=== PATIENT | male | born 1975 | race Caucasian/White ===

== ENCOUNTER 2018-03-17 23:50 | Inpatient (IN) | payer OTHER ==
[~2018-03-17] VITALS: Ht 182.9 cm; Wt 109.8 kg
[2018-03-18] VITALS (10 sets, daily range): BP systolic 110–158; BP diastolic 60–84
[2018-03-18 00:20] LABS: ABSOLUTE BASOPHIL COUNT 0 /CUMM (0.0-0.2); ABSOLUTE EOSINOPHIL COUNT 0.2 /CUMM (0.0-0.7); ABSOLUTE GRANULOCYTE CT 4.4 /CUMM (1.4-6.5); ABSOLUTE LYMPH COUNT 2.9 /CUMM (1.2-3.4); ABSOLUTE MONOCYTE COUNT 0.7 /CUMM (0.10-0.60); BASOPHIL % 0.4 % (0.0-2.0); GRANULOCYTE % 53.4 % (42.2-75.2); HEMATOCRIT 37.7 % (42-52); MEAN CORPUSCULAR HGB 28.5 PG (27.0-31.0); MEAN CORPUSCULAR HGB CONC 33.7 G/DL (33.0-37.0); MEAN CORPUSCULAR VOLUME 84.6 FL (80.0-94.0); MEAN PLATELET VOLUME 7.3 FL (7.4-10.4); PLATELET COUNT 255 /CUMM (130-400); RBC DISTRIBUTION WIDTH 13.1 % (11.5-14.5); RED BLOOD CELL CT 4.46 /CUMM (4.70-6.10); WHITE BLOOD CELL COUNT 8.1 /CUMM (4.8-10.8)
--- NOTE | 2018-03-18 00:29 | ED AMS/SEIZURE/WEAK/DIZZY ---
History of Present Illness General Chief Complaint: General Adult Stated Complaint: BIBA UNRESPONSIVE Source: EMS Exam Limitations: unable to give history, clinical condition Vital Signs & Intake/Output Vital Signs & Intake/Output Vital Signs Date Time Temp Pulse Resp B/P B/P Pulse O2 O2 Flow FiO2 Mean Ox Delivery Rate 03/18 0347 91 24 151/100 99 Ventilator 100% 03/18 0333 100 03/18 0333 120 24 197/107 97 Ventilator 100% 03/18 0234 96.0 67 24 97/59 93 Ventilator 100% 03/18 0150 95.5 81 24 108/68 92 Ventilator 100% 03/18 0138 100 03/18 0025 116 20 211/117 94 Ventilator 100% 03/18 0010 100 03/17 2358 112 40 200/100 84 Room Air Room Air 03/17 2350 84 100% ED Intake and Output 03/18 0000 03/17 1200 Intake Total Output Total Balance Patient 243 lb Weight Allergies Coded Allergies: No Known Allergies (03/18/18) Reconcile Medications Cyclobenzaprine HCl (Unknown Strength) TABLET (Unknown Dose) PAIN CONTROL ( Reported) Gabapentin (Unknown Strength) CAPSULE (Unknown Dose) PO TID PAIN CONTROL ( Reported) Sildenafil Citrate (Viagra) (Unknown Strength) TABLET (Unknown Dose) PO AD ERECTILE DYSFUNCTION (Reported) 1 hour before sexual activity Triage Note: 42YO MALE TO RM 12 VIA AMB SP FOUND DOWN W/AGONAL BREATHING PRESENT UPON ARRIVAL-NASAL AIRWAY PRESENT, NOISY, GROWLING RESPS. IV INTACT L H. Triage Nurses Notes Reviewed? yes Onset: Just prior to arrival Duration: minute(s):, constant, continues in ED Timing: recent history Injury Environment: home Severity: severe No Modifying Factors: none Associated Symptoms: diaphoresis HPI: 1 day prior to admission patient was at the [facility] for hypertension. His spouse reports he was wearing multiple nicotine patches and working outside. He took Viagra several hours prior to admission to have sex but his spouse was not in the mood. He went to the kitchen to make popcorn. Prior to admission patient was found by significant other unresponsive on the kitchen floor without evidence of injury. EMS called administered Narcan with minimal arousal of the patient. Upon entry to the ED the patient was being Ambu bag with flailing of extremities. 2 mg of Narcan was administered without response. He was found to have snoring respiration left gaze preference diaphoresis with jerking movements of upper and lower extremities. Past History Travel History Traveled to [place] past 21 day No Medical History Any Pertinent Medical History? see below for history Surgical History Surgical History: non-contributory Family History Hx Contributory? No Review of Systems Review of Systems Constitutional: Reports: see HPI, diaphoresis, weakness. EENTM: Reports: no symptoms. Respiratory: Reports: no symptoms. Cardiovascular: Reports: no symptoms. GI: Reports: no symptoms. Genitourinary: Reports: no symptoms. Musculoskeletal: Reports: no symptoms. Skin: Reports: no symptoms. Neurological/Psychological: Reports: see HPI, cognitive dysfunction, tremors, weakness. Hematologic/Endocrine: Reports: no symptoms. Immunologic/Allergic: Reports: no symptoms. All Other Systems: Reviewed and Negative Physical Exam Physical Exam General Appearance: well developed/nourished, severe distress, intoxicated Head: atraumatic, normal appearance Eyes: Bilateral: other (L gaze preference, dilated). Ears, Nose, Throat: normal pharynx, normal ENT inspection Neck: normal inspection, supple, full range of motion Respiratory: rhonchi, respiratory distress Cardiovascular: regular rate/rhythm, normal peripheral pulses, tachycardia, norml femoral pulses equa Peripheral Pulses: 4+ carotid (R), 4+ carotid (L) Gastrointestinal: normal bowel sounds, soft, non-tender, no organomegaly Back: normal inspection, normal range of motion Extremities: normal range of motion, no ligament instability Neurologic/Psych: disoriented x 3 Reflexes: 2+: bicep (R), bicep (L). Skin: diaphoresis Lymphatic: no anterior cervical trinity Core Measures ACS in differential dx? No CVA/TIA Diagnosis No Sepsis Present: No Sepsis Focused Exam Completed? No Progress Differential Diagnosis: alcohol intoxication, CVA/stroke, drug intoxication, electrolyte imbalance, hypoglycemia, intracranial mass/tumor, pneumonia Plan of Care: Orders Procedure Date/time Status Nothing by Mouth 03/18 B Active Patient Data 03/18 1644 Active TROPONIN LEVEL 03/18 1200 Active EKG 03/18 1200 Active TROPONIN LEVEL 03/18 0600 Active EKG 03/18 0600 Active ARTERIAL BLOOD GAS (GEN) 03/18 0500 Active XRY-PORTABLE CHEST XRAY 03/18 0500 Active Drains/Tubes 03/18 0435 Active ARTERIAL BLOOD GAS (GEN) 03/18 0356 Active Pathway - chart 03/18 0352 Active House Staff 03/18 035 Active BLOOD CULTURE 03/18 035 Active Code Status 03/18 035 Active Wound Care/Dressing 03/18 252 Active Weight 03/18 025 Active VTE Mechanical Prophylaxis 03/18 252 Active Vital Signs 03/18 252 Active Turn and Reposition 03/18 252 Active Drains/Tubes 03/18 252 Active Teach/Educate 03/18 252 Active Skin Integrity Protocol 03/18 252 Active Skin/Pressure Ulcer Assess (Sk 03/18 252 Active Precautions 03/18 252 Active Pain Treatment and Response 03/18 252 Active Nutritional Intake, Monitor 03/18 252 Active Isolation 03/18 252 Active CIWA 03/18 252 Active Patient Care Conference 03/18 252 Active Activity/Ambulation 03/18 252 Active Admit to inpatient 03/18 0232 Active Add-on Test (ER Only) 03/18 0231 Active ARTERIAL BLOOD GAS (GEN) 03/18 0155 Complete VENTILATOR PARAMETERS 03/18 0138 Complete Drains/Tubes 03/18 0038 Complete Intake & Output 03/18 0031 Active VENTILATOR PARAMETERS 03/18 0027 Complete Ahn, Insertion/Removal/Asses 03/18 0015 Active Restraint- Medical 03/18 0011 Active URINE DRUG SCREEN FOR ER ONLY 03/18 0011 Active ACETOMINOPHEN 03/18 0011 Complete TROPONIN LEVEL 03/18 0011 Complete SALICYLATE 03/18 0011 Complete ETHANOL 03/18 0011 Complete COMPREHENSIVE METABOLIC PANEL 03/18 0011 Complete CBC WITHOUT DIFFERENTIAL 03/18 0011 Complete EKG 03/18 0011 Active B-TYPE NATRIURETIC PEP (BNP) 03/18 001 Complete Lab Add-on Test 03/18 UNK Active Elevate 03/18 UNK Active Current Medications Sig/Alexis Start time Last Medication Dose Stop Time Status Admin Enoxaparin Sodium 40 MG DAILY 03/18 09 AC (Lovenox) Pantoprazole Sodium 40 MG DAILY 03/18 09 AC (Protonix) Ampicillin Sodium/ 3,000 MG Q6 03/18 0400 AC 03/18 Sulbactam Sodium 0405 (Unasyn) Sodium Chloride 100 ML (Normal Saline 0.9%) Laboratory Tests 03/18/18 0145: pH 7.33 L, pCO2 44, pO2 61 L, HCO3 23, ABG O2 Sat (Measured) 90.0 L, P-50 ( Temp Corrected) N, Carboxyhemoglobin 0.5 L, O2 Concentration % 100, Respiration Rate 24, O2 Delivery Method VENT, Vent Mode A/C, Expiratory Pressure 10, Tidal Volume 700, Phlebotomy Draw Site RIGHT RADIAL 03/18/18 0023: Urine Opiates Screen > 4000.00 H, Buprenorphine & Metab Pending, Methadone Screen 48, Barbiturate Screen < 60, Ur Phencyclidine Scrn < 6.00, Amphetamines Screen 522, U Benzodiazepines Scrn 368 H, Urine Cocaine Screen < 50, Urine Cannabis Screen < 5.00 03/18/18 0010: Anion Gap 19 H, Estimated GFR > 60, BUN/Creatinine Ratio 15.8, Glucose 137 H, Calcium 8.7, Total Bilirubin 0.3, AST 37, ALT 30, Alkaline Phosphatase 69, Troponin I < 0.01, Uml-X-Yuezifnrrxk Pept 12.4, Total Protein 7.3, Albumin 4.2, Globulin 3.1, Albumin/Globulin Ratio 1.4, CBC w Diff NO MAN DIFF REQ, RBC 4.46 L, MCV 84.6, MCH 28.5, MCHC 33.7, RDW 13.1, MPV 7.3 L, Gran % 53.4, Lymphocytes % 35.1, Monocytes % 8.1, Eosinophils % 3.0, Basophils % 0.4, Absolute Granulocytes 4.4, Absolute Lymphocytes 2.9, Absolute Monocytes 0.7 H, Absolute Eosinophils 0.2, Absolute Basophils 0, Salicylates < 1.0, Acetaminophen < 10.0 L, Serum Alcohol < 10.0 Microbiology 03/185 BLOOD: Blood Culture - RECD 03/18 350 BLOOD: Blood Culture - RECD Diagnostic Imaging: Viewed by Me: CT Scan. Discussed w/RAD: CT Scan. Radiology Impression: 1. Endotracheal tube terminates 4 cm above the nhi. 2. Bilateral dependent consolidation is nonspecific. While this could represent atelectasis, aspiration is also possible. 3. No acute fractures are seen. No acute findings of the abdomen or pelvis., 1. No acute intracranial findings. 2. No vascular abnormality. No large vessel occlusion. Initial ED EKG: normal axis, normal intervals, normal p-waves, normal QRS complex, normal sinus rhythm, rhythm (sinus tachycardia), nonspecific ST T wave chg Rhythm Strip: sinus tachycardia Departure Departure Disposition: STILL A PATIENT Condition: Critical Clinical Impression Primary Impression: Respiratory failure requiring intubation Secondary Impressions: Aspiration pneumonia, Opiate overdose Departure Forms: Customer Survey General Discharge Information Admission Note Spoke With: Carlos Ma MD Documentation of Exam: Documentation of any treatments & extenuating circumstances including Concerns Regarding Discharge (functional status, medication knowledge or non-compliance, living conditions, etc.) that warrant an admission rather than observation: ICU monitoring mechanical ventilation serial lab exam serial neurologic check IV fluids psychiatry evaluation medication adjustment continuing care discharge planning Procedures Intubation Intubation Method: orotracheal Tube Size (cm): 8.0 Medications: succinylcholine, etomidate Breath Sounds After Intubation: equal Intubation Complications: no complications Post Intubation Xray? Yes Progress: Repeat intubation difficult. Intubated on 3rd attempt 7Fr. 23 cm @ lips. Critical Care Note Critical Care Note Critical Care Time: 30-74 min (65)
--- NOTE | 2018-03-18 01:22 | CT SCAN REPORT ---
EXAMINATION: CT HEAD WITHOUT CONTRAST CLINICAL INFORMATION: Unresponsive. Dilated pupils. Overdose. COMPARISON: 05/10/2016 TECHNIQUE: Contiguous axial imaging was performed from the skull base to vertex without intravenous contrast. DLP: 618 mGy-cm. FINDINGS: There is no evidence of acute intracranial hemorrhage or territorial infarction. No abnormal mass effect or midline shift is seen. Betancur to white matter differentiation is well preserved. No extra-axial fluid collections are identified. No hydrocephalus. No significant volume loss. There is no abnormal attenuation within the brain parenchyma. The osseous structures and soft tissues are normal. The mastoid air cells and visualized portions of the paranasal sinuses are well aerated. IMPRESSION: No acute intracranial pathology.
--- NOTE | 2018-03-18 02:06 | CT SCAN REPORT ---
EXAMINATION: CT LIMITED OR FOLLOWUP CLINICAL INFORMATION: Trauma. COMPARISON: None TECHNIQUE/FINDINGS: During the cook apprentice imaging, the patient was extubated. The examination was then terminated. No diagnostic information obtained from the lateral cook apprentice image. DLP: 0 mGy-cm IMPRESSION: The examination was not performed due to patient extubation.
--- NOTE | 2018-03-18 03:29 | History & Physical ---
Diane Sharp MD 03/18/18 0329: General Information and HPI MD Statement: I have seen and personally examined JOCELINE DRAPER and documented this H&P. The patient is a 42 year old M who presented with a patient stated chief complaint of [BIBA FOR UNRESPONSSIVENSS]. 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 The history was provided by the patient's fianc. The pt was in his usual state of health this morning, he went to his school for [employer], came home at 12:30, He fixed his relative car. Around 2:30 pt fiancee came back home , she thought that the pt didn't look fine and was not acting himself. She accepted the patient if he used any drugs, at first he denied and then he said that he took 2 pills of the muscle relaxant prescribed by his doctor for back pain at 10:30. Patient feels he reported that he was walking funny, looked drowsy and was spacing out. Patient had an appointment at 5 PM with his doctor at [facility] for Suboxone. He called his fiance stating that his blood pressure was 200/97, his blood pressure was rechecked with a different cuff which was 127/97. Patient to go himself to and from the doctor office. After which patient went to dinner with his fiance and was still looking drowsy. They had an argument about if he is abusing any drugs. They went home, patient took 1 tablet of Viagra 100 mg. Patient went to the kitchen to get a snack, his fiance tried calling him however he did not answer. She went to check on him within 10 minutes when she found him on the kitchen floor in position snoring. At first she thought that he passed out she tried to wake him up but he was unresponsive. She called 911 who advised her to place him on his side for possible aspiration. The patient was too heavy for his fiance to lay him on his side and he remained in the same position. Patient feels he denied that he was complaining of any depression or suicidal ideation. Of note during his last visit to his doctor he mentioned that he feels good in general and he rewards himself from time to time; which she thinks is by taking drugs. Patient feels improved his meds. Many of the medications different tablets makes it in the same bottle. Some mass names are crossed out and his other names on the bottle. Vital signs on admission: Blood pressure 202/100, pulse 112, respiratory rate 40 , pulse ox 84 on room air Labs on admission: WBC was within normal limits with hemoglobin 12.7, WBC 8.1, platelet 255, BEP showed sodium 145, potassium 4.2, anion gap 19, glucose 137, troponin less than 0.01, U tox was positive for opiates and benzodiazepine ABG showed pH 7.33, PCO2 44, PO2 61, bicarb 23, Chest CT: 1. Endotracheal tube terminates 4 cm above the nhi. 2. Bilateral dependent consolidation is nonspecific. While this could represent atelectasis, aspiration is also possible. 3. No acute fractures are seen. No acute findings of the abdomen or pelvis. Head CT, CTA, neck CTA were negative Allergies/Medications Home Med list Cyclobenzaprine HCl (Unknown Strength) TABLET (Unknown Dose) PAIN CONTROL ( Reported) Gabapentin (Unknown Strength) CAPSULE (Unknown Dose) PO TID PAIN CONTROL ( Reported) Sildenafil Citrate (Viagra) (Unknown Strength) TABLET (Unknown Dose) PO AD ERECTILE DYSFUNCTION (Reported) 1 hour before sexual activity Past History Travel History Traveled to [place] past 21 day No Medical History Musculoskeletal: back pain Psychiatric: substance abuse (heroin abuse 3 years ago) Other Medical Hx: HCV, recieved treatment 1 year ago Surgical History Surgical History: non-contributory Past Family/Social History Family History Relations & Conditions if any MOTHER Relation not specified for: FHx: hypertension Psychosocial History Smoking Status: Former Smoker ETOH Use: occasional use Illicit Drug Use: denies illicit drug use, former Heroine abuse Review of Systems Review of Systems Constitutional: Reports: see HPI. Exam & Diagnostic Data Last 24 Hrs of Vital Signs/I&O Vital Signs Date Time Temp Pulse Resp B/P B/P Pulse O2 O2 Flow FiO2 Mean Ox Delivery Rate 03/18 0512 80 03/18 0444 80 03/18 0347 91 24 151/100 99 Ventilator 100% 03/18 0333 100 03/18 0333 120 24 197/107 97 Ventilator 100% 03/18 0234 96.0 67 24 97/59 93 Ventilator 100% 03/18 0150 95.5 81 24 108/68 92 Ventilator 100% 03/18 0138 100 03/18 0025 116 20 211/117 94 Ventilator 100% 03/18 0010 100 03/17 2358 112 40 200/100 84 Room Air Room Air 03/17 2350 84 100% Intake & Output 03/18 0800 03/18 0000 03/17 1600 Intake Total 1000 Output Total Balance 1000 Intake, IV 1000 Patient 243 lb Weight Physical Exam General Appearance unresponsive and intubated HEENT Atraumatic, PERRLA, EOMI, Mucous Membr. 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 U tox was positive for opiates and benzodiazepine however the patient is currently on Suboxone which he can give positive opiates. Patient blood pressure in the ER was 200/100, tachycardia, tachypnea with increasing secretion. When the patient was transported to CT scan the endotracheal tube got dislodged and the patient was extubated and was brought back in the ER room reintubated with the help of a glide scope. Large amount of secretion was suctioned and it was difficult to bag and required higher PEEP. Which was increased from 5-10. EKG showed ST depression in V2V5, tropes was negative. Differential diagnosis includes drug overdose, VA, Problem list: Possible drug overdose EKG changes in the form of ST depression Aspiration pneumonia Acute hypoxic respiratory failure is S/P intubation History of heroin abuse currently on Suboxone Hepatitis C, status post treatment Plan: Admit to ICU Critical care consult in the morning HOB elevation IV Unasyn 3 g every 6 IV for possible aspiration pneumonia Chest x-ray and ABG in the morning Check U tox for Suboxone Oral care with chlorhexidine IV Protonix 40 mg daily Serial troponin EKG Sent meds for identification by the pharmacy [facility] Prognosis is guarded, patient can see is aware about the possibilities. She tried to call patient mother but was not able to reach her. Patient is full code N.p.o. As Ranked By This Provider Problem List: 1. Aspiration pneumonia 2. Opiate overdose 3. Respiratory failure requiring intubation Core Measures/Misc (07/26) Acute Coronary Syndrome ACS Diagnosis: No Congestive Heart Failure Congestive Heart Failure Diagnosis No Cerebrovascular Accident CVA/TIA Diagnosis: No VTE (View Protocol) VTE Risk Factors Age>40 No Mechanical VTE Prophylaxis d/t N/A MechProphylax Ordered No VTE Pharm Prophylaxis d/t NA PharmProphylax ordered Sepsis (View protocol) Sepsis Present: No Emmett Sorto MD 03/18/18 0415: General Information and HPI Allergies/Medications Allergies: Coded Allergies: No Known Allergies (03/18/18) Resident Review Statement Resident Statement: examined this patient, discussed with internet sales manager, agreed with internet sales manager, discussed with family, reviewed EMR data (avail), discussed with nursing , reviewed images, amended to note Other Findings: 42-year-old male with past medical history of opiate (Heroin) abuse now on Suboxone since 2.5 yrs, who follows [facility] for PCP, Suboxone, group-therapy, was BIBA for unresponsiveness at home. According to his Meme ([phone]), he was in his usual state of health until this morning, and was reported to have helped her sister in household job today without any difficulty. Later around 2:30-3 pm, she found his mentation altered- drowsy, "staring", "out of it", initially denied any drug intacke and later mentioned he took two muscle relaxers. He went on to go out for dinner with her, took one viagra (home med) but did not have sex, and at bed-time, he asked if she "would like any popcorn?". About ten minutes after that and not responding to calls, she found him in the kitchen floor, curled up in position and breathing heavy/snoring, and unresponsive. 911 called and he was given narcan on site without much improvement. Of note, his brought a bag of his medications, which has mixed pills even inside a single container. Needs identifications. In the ED, he received narcan 2mg IV, breathing status was still worse, and was intubated, received 2 L NS total, Lorazepam IV, and one dose of Unasyn 3 gm. Vital signs, PE, lab values as noted above. Vital signs, physical exam, labs and imaging as noted above. Pertinent: Intubated obese gentleman with NGT, ETT, Ahn in place, with internet consultant connected. B/l coarse breath sound, distended abd with hyperactive bowel sounds, constricted pupils equally b/l but not pin-point, reacting sluggisly to light ( this is after his intubation and muscle relaxants dose). EKG-sinus rhythm, normal intervals, no ischemic changes Patient is currently admitted in the ICU for the management of following issues: RESPIRATORY #Acute hypoxic respiratory failure, requiring mechanical intubation and ventilation #Aspiration pneumonia likely Given patient's condition, patient's respiratory failure possibly is due to medication effect, depressing respiratory drive. he might have aspirated while lying in dependent position as well as evident in the CT scan. -Continue mechanical ventilation -Settings discussed with Dr Garza, who suggested decreasing rate, TV, PEEP. -Discussed with respiratory therapist who had reduced FiO2 to 85% already, and will cahnge settings one at a time with ABG in between. -Raise HOB, aspiration precautions -IV Unasyn 3 gm q6h -LRC when possible ID #Aspiration pneumonia likely -See in respiratory (Unasyn...) -Follow Blood, Urine, resp cultures CARDIO Pt received 2 L IV fluids already. Would hold off on further IV fluids for now. -Reassess in AM -Consider antihypersives if BP trending high -Trop and EKG at 6 am and 12 noon -Cardiology consult HEME Stable -Repeat CBC METABOLIC His current metabolic profile is within normal limits. Although he probably has toxic metabolic encephalopathy. -Continue to monitor ICU lab bundle closely -Follow up on U tox with Subxone level -Consider sending out other toxic metabolites as well if further labs are abnormal ALIMENTARY -NPO due to intubation -NGT in situ -IV PPI NEURO #Toxic Metabolic encephalopathy Nut entirely sure of the cause or mechanism of his mental state. Most likely is medication error (overdose, wrong med, among others) as he seems to have a mix of drugs in bag brought in by his . -Seizure, aspiration precaution -Consider neurology consult, if any focality observed NEPHRO Currently stable. -Continue to monitor HOUSEKEEPING: Diet: NPO DVT ppx: SQ Lovenox Code status: Full code IV Access: Peripheral Ahn? Yes NGT? Yes ETT? Yes Carlos Ma 03/18/18 0522: Attending MD Review Statement Attending Statement Attending MD Statement: examined this patient, discuss w/resident/PA/RIG HAND, agreed w/resident/PA/RIG HAND, discussed with family, reviewed EMR data (avail), reviewed images, amended to note Attending Assessment/Plan: CC: agonal breathing PMH: History of heroine addiction 3 years back, currently on Suboxone, history of hep C S/P treatment History is obtain from patient's fianc. She stated that patient did not "look himself" this afternoon. "Seemed a little off". She inquired if he had taken any medication. Patient stated that he took to muscle relaxants, they went out for dinner in the evening, at that time patient had blank look intermittently and after coming back patient was getting something from kitchen. He was taking longer time than usual so ficarmen went to check on him within 10 mins and he was gasping for air in a position in kitchen. She made him lay flat and called EMS. She states that patient took Viagra before that episode. Even before that he was appearing a little more dazed and eye "blank look" but she did not notice any neurological changes, facial drooping or weakness. She did not notice any seizure-like activity when he was found in kitchen. Patient went to Suboxone clinic this morning, his blood pressure was 200/80, was rechecked again with different cough and was 120/80. Other than this no particular observations for the day according to stefan. Stefan also got all his medications boxes from home with her. Vitals: Temperature 96.0, pulse 67, RR 24, blood pressure 200/100, dropped to 97 /59, saturating 84% on high flow nasal cannula, 92% after intubation on ventilator 100% FiO2 On examination: Pupils are not pinpoint, sluggishly reactive, patient intubated, coarse breathing sounds in all lung rapp, does not move to deep pain sensation , abdomen soft, no obvious skin rashes or tracks. CT head: No acute intracranial pathology Assessment and plan 42-year-old male with past medical history significant for IVDU, clear since 3 years, currently on Suboxone was brought in ER through ambulance after patient's fiance found him gasping for air, obtunded in kitchen. He looked a little dazed earlier during the day, when she asked he endorsed taking couple of more muscle relaxant pills. He also took Viagra just before the episode but it's not new for him to take that medication. Patient's blood pressure in ER was 200/100, tachycardic, tachypneic, not holding his secretions, immediately intubated upon arrival. He was under investigation with the labs and imaging when he was transported to CT scan, the endotracheal tube dislodged and patient got extubated. He was brought back in ER room and reintubated with the help of a glidescope. Copious amount of frothy secretions were suctioned from the ET tube. Patient was difficult to bag, and required higher PEEP months up to ventilation to saturate about 92%. PEEP increased from 5 to 10, to increase in O2 sats from 87% to 92%, on 100% FiO2 tidal volume of 700 and respiratory rate of 24. Once the sedation for intubation was decreasing patient was spontaneously moving his hand intermittently. Labs otherwise unremarkable except U tox positive opiates in high quantities, small dose of benzodiazepine for but ECG shows ST depression in V2 to V5, troponin negative. Patient's altered mental status could be secondary to drug overdose. When his pill boxes from home were checked, it had many pills mixed up in different boxes: baclofen, gabapentin, Flexeril, Seroquel , Wellbutrin. Overdose of any of this medication could cause his altered mental status (pupils sluggishly reactive, not pinpoint). Patient already on Suboxone can give opiate positive in urine, may have taken street heroin or other opiate. Less likely secondary to Viagra as blood pressure was sustained and ST depression appear secondary to demand. Transient drop in blood pressure while in ER was after intubation and positive pressure ventilation started. CT head, CT abdomen and pelvis, CT chest, CTA head and neck was obtained which did not show any acute changes except possibility of aspiration pneumonia. + Toxic encephalopathy + Acute respiratory failure status post intubation requiring maximum support + Suspected overdose + ST depression on ECG + Aspiration pneumonia + History of IVDU currently on Suboxone, hep C S/P treatment - Admit to ICU - Please call charge master specialist for vent setting - If patient is getting more alert or agitated then start propofol for sedation - Check specific U tox for Suboxone level - Head and elevation - Oral care - IV Protonix 40 mg daily - Serial troponin and ECG - Repeat ABG in 2 hours of previous to adjust vent settings - Continue IV Unasyn - Chest x-ray in a.m. - Cardiology consult - I had detailed discussion with patient's fianc about possibilities and causes of current condition, explained her that he is critically sick, she understands the seriousness. Patient is full code. TTS 45 min
--- NOTE | 2018-03-18 03:46 | CT SCAN REPORT ---
EXAMINATION: CT CHEST WITHOUT CONTRAST CT ABDOMEN AND PELVIS WITHOUT CONTRAST CLINICAL INFORMATION: Fall. Overdose. COMPARISON: None. TECHNIQUE: Multidetector volumetric imaging was performed through the chest, abdomen and pelvis without contrast. Sagittal and coronal reformatted images were obtained on the technologist's workstation. Axial MIP volume rendering provided. DLP: 1640 mGy-cm. FINDINGS: CHEST: Lungs: An endotracheal tube is in place, which terminates approximately 4 cm above the nhi. The central airways are patent. There is dense bilateral lower lobe consolidation with air bronchograms. Additional streaky opacity at the dependent aspect of the upper lobes. No significant pleural effusion. No pneumothorax. Mediastinum: The heart is normal in size. No pericardial effusion. No mediastinal lymphadenopathy. The thyroid gland is unremarkable. Chest Wall/Axilla: No lymphadenopathy. No chest wall mass. ABDOMEN/PELVIS: Liver, Gallbladder, Biliary Tree: The liver is normal in size, shape, and attenuation. No focal hepatic lesion or biliary ductal dilatation is present. The gallbladder is unremarkable with no evidence of radiopaque gallstones, gallbladder wall thickening, or pericholecystic inflammatory changes. Pancreas: Unremarkable. Spleen: Unremarkable. Adrenal Glands: Unremarkable. Kidneys and Ureters: The kidneys are normal in size, shape, and attenuation. No hydronephrosis, hydroureter or calculi seen. No perinephric stranding. Bladder: Decompressed with a Ahn catheter in place. Gastrointestinal Tract: Enteric tube extends into the stomach. The small bowel is normal in caliber. There is no obstruction. No colonic wall thickening or inflammatory change. No free air or free fluid. The appendix is unremarkable. Abdominal Wall: No hernia is demonstrated. Lymphovascular Structures: Lymph nodes: Normal. Vascular: Unremarkable. Pelvic Viscera: The prostate and seminal vesicles are unremarkable. OSSEOUS STRUCTURES: No suspicious sclerotic or lytic bone lesions are identified. No acute osseous abnormalities. Vertebral body height and alignment is maintained. The sternum is intact. The ribs are intact. The pelvis is intact. IMPRESSION: 1. Endotracheal tube terminates 4 cm above the nhi. 2. Bilateral dependent consolidation is nonspecific. While this could represent atelectasis, aspiration is also possible. 3. No acute fractures are seen. No acute findings of the abdomen or pelvis.
--- NOTE | 2018-03-18 03:50 | CT SCAN REPORT ---
EXAMINATION: CTA OF THE HEAD/NECK CLINICAL INFORMATION: Overdose. Seizure. COMPARISON: Head CT from today TECHNIQUE: A routine non contrast head CT was performed earlier in the day. A 95 mL bolus of Optiray 320 was utilized. Subsequent multidetector helical imaging was performed of the head and neck. Delayed post contrast imaging was also performed through the head. Multiplanar reformats and MIP were also obtained. Internal carotid artery stenoses are assessed in accordance with NASCET criteria unless otherwise indicated. DLP: 1195 mGy-cm. FINDINGS: CT HEAD: No evidence of acute intracranial hemorrhage or territorial infarction. No abnormal mass effect or midline shift. Betancur to white matter differentiation is preserved. No extra-axial fluid collections are identified. No hydrocephalus. No suspicious leptomeningeal or parenchymal enhancement on the post-contrast images. The osseous structures and soft tissues are normal. The mastoid air cells and visualized portions of the paranasal sinuses are well aerated. CTA NECK: The aortic arch is of normal caliber and the origins of the great vessels are patent without evidence of significant stenosis. The cervical portion of the vertebral arteries are patent bilaterally. No luminal irregularities in the common carotid arteries and the carotid bifurcations are patent bilaterally. The cervical portion of the internal carotid arteries are of normal caliber. The laryngeal structures and pharyngeal mucosal spaces are unremarkable. The oral cavity appears normal. The parotid and submandibular glands are normal. No pathologically enlarged lymph nodes. The thyroid gland is unremarkable. No pneumothorax seen at the lung apices. Dependent opacities are seen bilaterally. Endotracheal and nasogastric tubes are in place. Spinal alignment is maintained. CTA HEAD: The intradural portion of the vertebral arteries are of normal caliber. The basilar, superior cerebellar, and posterior communicating arteries are patent. The posterior, middle, and anterior cerebral arteries are of normal caliber without evidence of significant luminal irregularity. No definite intracranial aneurysms. IMPRESSION: 1. No acute intracranial findings. 2. No vascular abnormality. No large vessel occlusion.
[2018-03-18] MEDS ORDERED: GABAPENTIN100 M2 PO (04:33)
[2018-03-18] MEDS ORDERED: CYCLOBENZAPRINE5 M2 (04:34)
[2018-03-18] MEDS ORDERED: VIAGRA50 MG PO (04:34)
--- NOTE | 2018-03-18 05:24 | Admission Certification ---
Admission Certification Certification Statement - As attending physician, I certify that at the time of - admission, based on clinical presentation, severity of - symptoms, need for further diagnostic testing and - therapeutic interventions, and risk of adverse outcomes - without in-hospital treatment, in my clinical assessment, - this patient requires an acute hospital stay for a minimum - of two nights or longer. I have also considered psychsocial - factors such as support system, advanced age, financial - issues, cognitive issues, and failed out-patient treatments, - past re-admission history, safety of patient, and lack of - compliance as applicable. Specific rationale supporting this admission is: Acute respiratory failure status post intubation, suspected overdose, aspiration pneumonia
[2018-03-18 06:15] LABS: ABSOLUTE BASOPHIL COUNT 0 /CUMM (0.0-0.2); ABSOLUTE EOSINOPHIL COUNT 0.1 /CUMM (0.0-0.7); ABSOLUTE GRANULOCYTE CT 6.1 /CUMM (1.4-6.5); ABSOLUTE LYMPH COUNT 1.2 /CUMM (1.2-3.4); ABSOLUTE MONOCYTE COUNT 0.5 /CUMM (0.10-0.60); BASOPHIL % 0.3 % (0.0-2.0); EOSINOPHIL % 0.9 % (0-5); GRANULOCYTE % 77.4 % (42.2-75.2); HEMATOCRIT 36.5 % (42-52); MEAN CORPUSCULAR HGB 27.9 PG (27.0-31.0); MEAN CORPUSCULAR HGB CONC 33.1 G/DL (33.0-37.0); MEAN CORPUSCULAR VOLUME 84.2 FL (80.0-94.0); MEAN PLATELET VOLUME 7.4 FL (7.4-10.4); PLATELET COUNT 232 /CUMM (130-400); RBC DISTRIBUTION WIDTH 13.6 % (11.5-14.5); RED BLOOD CELL CT 4.34 /CUMM (4.70-6.10); WHITE BLOOD CELL COUNT 7.9 /CUMM (4.8-10.8)
[2018-03-18 06:33] LABS: PT 11.6 SEC (9.4-12.5); PTT 28 SEC (25-37)
--- NOTE | 2018-03-18 09:03 | Cons- CRCU ---
HerberthMonae huffman 03/18/18 0903: General Information and HPI Consulting Request Date of Consult: 03/18/18 Requested By: Carlos Ma MD Reason for Consult: Respiratory failure Encephalopathy Aspiration pneumonia Source of Information: medical record Exam Limitations: no limitations History of Present Illness: Mr. Betancur is a 42-year-old male with past medical history of opiate (Heroin) abuse now on Suboxone since 2.5 yrs, who follows [facility] for PCP, Suboxone, group-therapy, was BIBA for unresponsiveness at home. According to his Meme ([phone]), he was in his usual state of health until this morning, and was reported to have helped her sister in household job today without any difficulty. Later around 2:30-3 pm, she found his mentation altered- drowsy, "staring", "out of it", initially denied any drug intacke and later mentioned he took two muscle relaxers. He went on to go out for dinner with her, took one viagra (home med) but did not have sex, and at bed-time, he asked if she "would like any popcorn?". About ten minutes after that and not responding to calls, she found him in the kitchen floor, curled up in position and breathing heavy/snoring, and unresponsive. 911 called and he was given narcan on site without much improvement. Of note, his brought a bag of his medications, which has mixed pills even inside a single container. Needs identifications. In the ED, he received narcan 2mg IV, breathing status was still worse, and was intubated, received 2 L NS total, Lorazepam IV, and one dose of Unasyn 3 gm. Vital signs, PE, lab values as noted above. Today: Pateint seen and examined, he is awake, able to node his head. He is intubated. Mechanical ventilation setting: AC, RR: 16, PEAK FLOW: 60, fiO2: 40, PEEP:5, Tidal volume: 563 Allergies/Medications Allergies: Coded Allergies: No Known Allergies (03/18/18) Home Med List: Cyclobenzaprine HCl (Unknown Strength) TABLET (Unknown Dose) PAIN CONTROL ( Reported) Gabapentin (Unknown Strength) CAPSULE (Unknown Dose) PO TID PAIN CONTROL ( Reported) Sildenafil Citrate (Viagra) (Unknown Strength) TABLET (Unknown Dose) PO AD ERECTILE DYSFUNCTION (Reported) 1 hour before sexual activity Current Medications: Current Medications Sig/Alexis Start time Last Medication Dose Route Stop Time Status Admin Ampicillin Sodium/ 0 .STK-MED ONE 03/18 0406 DC Sulbactam Sodium .ROUTE Ampicillin Sodium/ 3,000 MG Q6 03/18 0400 AC 03/18 Sulbactam Sodium IV 1111 Sodium Chloride 100 ML Enoxaparin Sodium 40 MG DAILY 03/18 900 AC 03/18 SC 1031 Etomidate 20 MG ONCE ONE 03/18 0015 DC 03/18 IV 03/18 0016 0000 Lorazepam 0 .STK-MED ONE 03/18 0406 DC .ROUTE Lorazepam 1 MG ONCE ONE 03/18 040 DC 03/18 IV 03/18 0401 0350 Lorazepam 1 MG ONCE ONE 03/18 0345 DC 03/18 IV 03/18 0346 0305 Lorazepam 0 .STK-MED ONE 03/18 0312 DC .ROUTE Lorazepam 1 MG ONCE ONE 03/18 0145 DC 03/18 IV 03/18 0146 0119 Lorazepam 0 .STK-MED ONE 03/18 0125 DC .ROUTE Lorazepam 0 .STK-MED ONE 03/18 0017 DC .ROUTE Lorazepam 1 MG ONCE ONE 03/18 0015 DC 03/18 IV 03/18 0016 0008 Magnesium Sulfate 1 GM ONCE ONE 03/18 0815 AC 03/18 Dextrose/Water 100 ML IV 03/18 1214 0935 Morphine Sulfate 2 MG Q6P PRN 03/18 1030 AC IV Naloxone HCl 0 .STK-MED ONE 03/18 0213 DC .ROUTE Naloxone HCl 0 .STK-MED ONE 03/18 0213 DC .ROUTE Naloxone HCl 2 MG ONCE ONE 03/18 0145 DC 03/18 IV 03/18 0146 0000 Pantoprazole Sodium 40 MG DAILY 03/18 09 AC 03/18 IV 1031 Phosphate 250 MG ONCE ONE 03/18 08 DC 03/18 PO 03/18 0816 1031 Potassium Chloride 20 MEQ ONCE ONE 03/18 0845 DC 03/18 PO 03/18 0846 1031 Potassium Chloride 10 MEQ Q1H 03/18 0815 DC IV 03/18 0916 Sodium Chloride 1,000 ML Q13H 03/18 0845 AC 03/18 IV 05/ 2144 0909 Succinylcholine 100 MG ONCE ONE / 0145 DC 05/10 Chloride IV 05/10 0146 0104 Succinylcholine 100 MG ONCE ONE / 0015 DC 05/10 Chloride IV 05/ 0016 0000 Vecuronium [place] 0 .STK-MED ONE / 0406 DC IV Vecuronium [place] 10 MG ONCE ONE / 0400 DC 05/10 IV 05/ 0401 0350 Vecuronium [place] 10 MG ONCE ONE 03/18 0345 DC 05/10 IV 05/10 0346 0305 Vecuronium [place] 0 .STK-MED ONE 05/ 0312 DC IV Vecuronium [place] 10 MG ONCE ONE / 0145 DC 05/10 IV 05/10 0146 0118 Vecuronium [place] 10 MG ONCE ONE / 0015 DC 05/10 IV 05/10 0016 0005 Review of Systems Review of Systems Constitutional: Reports: no symptoms. EENTM: Reports: no symptoms. Cardiovascular: Reports: no symptoms. Respiratory: Reports: short of breath. GI: Reports: no symptoms. Genitourinary: Reports: no symptoms. Musculoskeletal: Reports: no symptoms. Skin: Reports: no symptoms. Neurological/Psychological: Reports: see HPI. Hematologic/Endocrine: Reports: no symptoms. All Other Systems: Reviewed and Negative Past History Travel History Traveled to [place] past 21 day No Medical History Musculoskeletal: back pain Psychiatric: substance abuse (heroin abuse 3 years ago) Other Medical Hx: HCV, recieved treatment 1 year ago Surgical History Surgical History: non-contributory Family History Relations & Conditions If Any: MOTHER Relation not specified for: FHx: hypertension Psychosocial History Smoking Status: Former Smoker ETOH Use: occasional use Illicit Drug Use: denies illicit drug use, former Heroine abuse Exam & Diagnostic Data Last 24 Hrs of Vital Signs/I&O Vital Signs Date Time Temp Pulse Resp B/P B/P Pulse O2 O2 Flow FiO2 Mean Ox Delivery Rate 03/18 1000 92 18 112/62 03/18 0909 40 03/18 08 98.9 78 20 120/72 03/18 08 98.9 78 20 120/72 100 Ventilator 60% 03/18 08 100 Ventilator 50% 03/18 0759 50 03/18 0622 60 03/18 0605 60 03/18 06 98.2 76 23 128/75 03/18 0600 98 Ventilator 60% 03/18 0512 80 05 0500 98.2 86 23 158/84 03/18 0500 98 Ventilator 60% 03/18 0444 80 03/18 0347 91 24 151/100 99 Ventilator 100% 03/18 0333 100 03/18 0333 120 24 197/107 97 Ventilator 100% 03/18 0234 96.0 67 24 97/59 93 Ventilator 100% 03/18 0150 95.5 81 24 108/68 92 Ventilator 100% 03/18 0138 100 03/18 0025 116 20 211/117 94 Ventilator 100% 03/18 0010 100 03/17 2358 112 40 200/100 84 Room Air Room Air 03/17 2350 84 100% Intake & Output 03/18 1600 03/18 0800 03/18 0000 Intake Total 3000 Output Total 1280 Balance 1720 Intake, IV 3000 Intake, Oral 0 Output, 100 Gastric Drainage Output, Urine 1180 Patient 242 lb 243 lb Weight Physical Exam General Appearance: well developed/nourished, no apparent distress, alert, awake , intubated Head: atraumatic, normal appearance Neck: normal inspection, supple Respiratory: chest non-tender, On mechnical ventilation Cardiovascular: regular rate/rhythm, normal peripheral pulses Gastrointestinal: normal bowel sounds, soft, non-tender Extremities: normal inspection, normal capillary refill, normal range of motion, no edema Neurologic/Psych: awake, alert Last 48 Hrs of Labs/Sj: Laboratory Tests 03/18/18 0615: pH 7.49 H, pCO2 33 L, pO2 75 L, HCO3 25, ABG O2 Sat (Measured) 96.0, P-50 ( Temp Corrected) N, Carboxyhemoglobin 0.5 L, O2 Concentration % .60, Respiration Rate 24, O2 Delivery Method VENT, Vent Mode A/C, Expiratory Pressure 10, Tidal Volume 600, PT 11.6, INR 1.06, APTT 28, Phlebotomy Draw Site RIGHT BRACHIAL 03/18/18 0600: Troponin I Cancelled 03/18/18 0553: Anion Gap 13, Estimated GFR > 60, Glucose 99, Calcium 8.6, Phosphorus 2.4 L, Magnesium 1.7, Total Bilirubin 0.5, AST 37, ALT 39, Troponin I 0.02, Albumin 3.9 , CBC w Diff NO MAN DIFF REQ, RBC 4.34 L, MCV 84.2, MCH 27.9, MCHC 33.1, RDW 13.6, MPV 7.4, Gran % 77.4 H, Lymphocytes % 15.4 L, Monocytes % 6.0, Eosinophils % 0.9, Basophils % 0.3, Absolute Granulocytes 6.1, Absolute Lymphocytes 1.2, Absolute Monocytes 0.5, Absolute Eosinophils 0.1, Absolute Basophils 0 03/18/18 0145: pH 7.33 L, pCO2 44, pO2 61 L, HCO3 23, ABG O2 Sat (Measured) 90.0 L, P-50 ( Temp Corrected) N, Carboxyhemoglobin 0.5 L, O2 Concentration % 100, Respiration Rate 24, O2 Delivery Method VENT, Vent Mode A/C, Expiratory Pressure 10, Tidal Volume 700, Phlebotomy Draw Site RIGHT RADIAL 03/18/18 0023: Urine Opiates Screen > 4000.00 H, Buprenorphine & Metab POSITIVE, Methadone Screen 48, Barbiturate Screen < 60, Ur Phencyclidine Scrn < 6.00, Amphetamines Screen 522, U Benzodiazepines Scrn 368 H, Urine Cocaine Screen < 50, Urine Cannabis Screen < 5.00 03/18/18 0010: Anion Gap 19 H, Estimated GFR > 60, BUN/Creatinine Ratio 15.8, Glucose 137 H, Calcium 8.7, Total Bilirubin 0.3, AST 37, ALT 30, Alkaline Phosphatase 69, Troponin I < 0.01, [id number] Pept 12.4, Total Protein 7.3, Albumin 4.2, Globulin 3.1, Albumin/Globulin Ratio 1.4, CBC w Diff NO MAN DIFF REQ, RBC 4.46 L, MCV 84.6, MCH 28.5, MCHC 33.7, RDW 13.1, MPV 7.3 L, Gran % 53.4, Lymphocytes % 35.1, Monocytes % 8.1, Eosinophils % 3.0, Basophils % 0.4, Absolute Granulocytes 4.4, Absolute Lymphocytes 2.9, Absolute Monocytes 0.7 H, Absolute Eosinophils 0.2, Absolute Basophils 0, Salicylates < 1.0, Acetaminophen < 10.0 L, Serum Alcohol < 10.0 Assessment/Plan CRCU Impression/Plan: Assessment: -Toxic encephalopathy -Acute respiratory failure status post intubation requiring maximum support -Suspected overdose -ST depression on ECG -Aspiration pneumonia -History of IVDU currently on Suboxone, hep C S/P treatment Plan: * Will continue mech vent but with decrease ventilatory setting especially PEEP and Fio2 * Keep head of the bed elevated * Continue unacyn * PPI IV * Will replace electrolytes * Will palce neurology consult * Will continue hydration with IV NS@ 75 ml/hr * NPO * sc HEPARIN * FC Consult Acknowledgment - Thank you for your consult request. Kayla TAMEZ,[facility] 03/18/18 0932: Assessment/Plan CRCU Other Findings/Comments: Seen and examined independently History as noted in the history and physical General Appearance unresponsive and intubated HEENT Atraumatic, PERRLA, EOMI, Mucous Membr. moist/pink, intubated, NG tube in place Neck Supple, No JVD Cardiovascular Normal S1, Normal S2 Lungs wide spread rhonchi Abdomen Normal Bowel Sounds, Soft, distended This is a gentleman with heroin abuse on Suboxone was found to be unresponsive by his fiance. Subsequently he had to be intubated. Full history is not entirely clear but been extensively and laboratory data in the history and physical done upon admission few hours ago. When I saw him he was intubated was alert awake. And was following commands. He has had history of significant intravenous drug abuse as well in the past, multiple issues in the past with anxiety and depression, multiple drug abuse, history of ingestion of multiple pills including baclofen, gabapentin, Flexeril, Seroquel, Wellbutrin etc. Patient subsequently was intubated in the ED and he did accidentally extubated himself and was reintubated. Initially he required high PEEP high FiO2 and slowly he is improving. SIGNIFICANT DATA EKG reviewed which showed ST-T changes upon admission in the anterior leads and subsequent EKG done this morning was normal. He had a CT scan of the head with angiogram which was unremarkable, he had CT scan of the chest which showed dependent consolidation on both sides with probable aspiration. No acute abdominal findings no fracture. His blood work reviewed which showed potassium of 3.8 anion gap was normal magnesium was low his troponin was not elevated CPK was not performed his urine tox screen was positive for few prone are seen, benzo, morphine. Cocaine was negative. White count 7.9 hemoglobin 12.1 no significant left shift INR was normal ABG upon admission 733/44/61 subsequently 749/33/75 on the 60% FiO2. IMPRESSION This a gentleman with polysubstance abuse with multiple drug use, history of being on Flexeril and gabapentin and Viagra with multiple other medication bottles found at his bedside including baclofen etc. as noted in the history and physical now has Acute hypoxemic respiratory failure related to drug overdose intentional versus unintentional not known. Suggestive, and with history of intravenous drug use Significant aspiration pneumonia due to drug overdose and vomiting Transient EKG changes rule out ischemic heart Toxic metabolic encephalopathy from multiple medications IV drug use heroine use previous hepatitis C high risk for withdrawal Metabolic abnormalities as noted RECOMMENDATION Continue ventilator Reduce PEEP and reduce FiO2 follow oxygen saturation Keep the head of bed elevated IV proton pump inhibitor Use low-dose morphine for withdrawal Pulmonary toilet Subcutaneous heparin Periodex oral care 3 times a day to prevent any other infection Sputum culture Unasyn Replace potassium and magnesium Use benzos only as needed initially can use fentanyl or morphine for sedation if he needs it We will assess him for extubation in the future once all his medications to wear off Patient critically ill total time spent 40 minutes Consult Acknowledgment - Thank you for your consult request.
[2018-03-19] VITALS (12 sets, daily range): BP systolic 118–159; BP diastolic 60–88
[2018-03-19 05:01] LABS: ABSOLUTE BASOPHIL COUNT 0 /CUMM (0.0-0.2); ABSOLUTE EOSINOPHIL COUNT 0.1 /CUMM (0.0-0.7); ABSOLUTE GRANULOCYTE CT 4.3 /CUMM (1.4-6.5); ABSOLUTE MONOCYTE COUNT 0.5 /CUMM (0.10-0.60); BASOPHIL % 0.3 % (0.0-2.0); EOSINOPHIL % 1.8 % (0-5); GRANULOCYTE % 72.8 % (42.2-75.2); HEMATOCRIT 33.4 % (42-52); MEAN CORPUSCULAR VOLUME 84.7 FL (80.0-94.0); MEAN PLATELET VOLUME 7.6 FL (7.4-10.4); PLATELET COUNT 207 /CUMM (130-400); RBC DISTRIBUTION WIDTH 13.6 % (11.5-14.5); RED BLOOD CELL CT 3.94 /CUMM (4.70-6.10); WHITE BLOOD CELL COUNT 5.9 /CUMM (4.8-10.8)
--- NOTE | 2018-03-19 08:08 | RADIOLOGY REPORT ---
EXAMINATION: XR PORTABLE CHEST CLINICAL INFORMATION: Respiratory distress. Status post intubation. COMPARISON: CT of the chest done on 03/18/2018. TECHNIQUE: Portable frontal view of the chest was obtained. FINDINGS: Low lung volume is present. Nonspecific airspace opacities noted at left lung base. The tip of the endotracheal tube is located approximately 5 cm above the level of the nhi. There is an enteric tube identified, the tip is not visualized due to underexposure. IMPRESSION: Low lung volume with nonspecific airspace disease at left lung base. The tip of the endotracheal tube is located approximately 5 cm above the level of the nhi.
--- NOTE | 2018-03-19 09:19 | PN- Resident CRCU ---
Herrera 03/19/18 0919: Subjective HPI/CRCU Issues: Respiratory failure/resolved Encephalopathy/resolved Aspiration pneumonia 24 Hour Events: No events overnight, extubated today at am Vitals over night stable He was seen and examined, awake, alert, oriented x3 Denies any complaint Able to answer questiones properly Objective Vital Signs & I&O Last 8 Hrs of Vitals and I&O: Tmax: 99, Pulse:88, BP:132/66, he is on 3L NC with a sat of 96% Exam General Appearance: well developed/nourished, no apparent distress, alert, awake , comfortable Head: atraumatic, normal appearance Neck: normal inspection, supple Respiratory: normal breath sounds, chest non-tender, no respiratory distress Cardiovascular: regular rate/rhythm, normal peripheral pulses Gastrointestinal: normal bowel sounds, soft, non-tender Extremities: normal inspection, normal capillary refill, normal range of motion, no edema Weaning Parameters NIF: 20 Minute Volume: 7.26 Resp rate: 14 Vt: 390 Heart Rate: 84 Weaning Schedule Start Time: 0835 Minute Volume: 7.5 Resp Rate: 13 Vt: 446 Heart Rate: 84 Nutrition Nutrition: Swallow evaluation ordered Current Medications: Current Medications Sig/Alexis Start time Last Medication Dose Route Stop Time Status Admin Ampicillin Sodium/ 3,000 MG 0400,1000,1600,2200 03/18 1600 AC 03/19 Sulbactam Sodium IV 1028 Sodium Chloride 100 ML Enoxaparin Sodium 40 MG DAILY 03/18 09 03/19 SC 0931 Morphine Sulfate 4 MG .STK-MED ONE 03/19 0319 DC IM 03/19 0320 Morphine Sulfate 2 MG Q6P PRN 03/18 1030 03/19 IV 0320 Pantoprazole Sodium 40 MG DAILY 03/18 09 03/19 IV 0931 Potassium Chloride 40 MEQ ONCE ONE 03/19 0915 DC 03/19 PO 03/19 0916 0922 Sodium Chloride 1,000 ML Q13H 03/18 1145 03/19 IV 0101 Antibiotics Antibiotic: Unacyn CXR Findings: Low lung volume with nonspecific airspace disease at left lung base. The tip of the endotracheal tube is located approximately 5 cm above the level of the nhi. Impression/Plan Impression/Problem List Impression: Assessment: -Acute respiratory failure 2/2 OPIATE OVERDOSE status post intubation requiring maximum support/ today extubated -ST depression on ECG resolved -Aspiration pneumonia -History of IVDU currently on Suboxone, hep C S/P treatment Plan: * Patient extubated today, currently on 3L nc, he is stable * Keep head of the bed elevated * Continue unacyn * PPI IV * Swallow evaluation * Psychiatry consult placed, will evaluate the patient later today or tomorrow * Morphine discontinued * He is following with [facility] for Suboxone, the dose was confirmed and ordered, he is on 8-2mg film Q8hr. * Will replace electrolytes * Awaiting neurology evaluation * Will continue hydration with IV NS@ 75 ml/hr, will discontinue once he start eating * NPO, till official swallow evaluation * sc HEPARIN * FC Problem List: 1. Aspiration pneumonia 2. Respiratory failure requiring intubation 3. Opiate overdose Pain Ratin Tomorrow's Labs & Rationales: ICU labe bundle, CBC Plan DVT/Prophylaxis: mechanical, pharmacological Kayla TAMEZ,[facility] 03/19/18 1330: Attending MD Review Statement Attending Sign Off Attending Cosign Statement: I have: examined this patient, reviewed [facility] EMR data, personally reviewd images, discussd w/resident/PA/CLUB ATTENDANT, discussed mgmt plan w/jake, discussed mgmt plan w/CM, discussed mgmt plan w/pt, agreed w/resident/PA/CLUB ATTENDANT, amended to note. Other Findings: General Appearance initially intubated and subsequently extubated awake alert HEENT Atraumatic, PERRLA, EOMI, Mucous Membr. moist/pink, intubated, NG tube in place Neck Supple, No JVD Cardiovascular Normal S1, Normal S2 Lungs wide spread rhonchi Abdomen Normal Bowel Sounds, Soft, distended /33/75 on the 60% FiO2. IMPRESSION This a gentleman with polysubstance abuse with multiple drug use, history of being on Flexeril and gabapentin and Viagra with multiple other medication bottles found at his bedside including baclofen etc. as noted in the history and physical now has * Resolved Acute hypoxemic respiratory failure related to drug overdose intentional versus unintentional not known.and with history of intravenous drug use * Significant aspiration pneumonia due to drug overdose and vomiting * Transient EKG changes rule out ischemic heart * Toxic metabolic encephalopathy from multiple medications * History of IV drug use heroine use previous hepatitis C high risk for withdrawal RECOMMENDATION Continue antibiotics Switch him to by mouth PPI Subcutaneous Lovenox Replace electrolytes keep magnesium more than 2 potassium more than 4 can be replaced by mouth Repeat chest x-ray tomorrow We will consider changing him to by mouth antibiotics Psychiatry consult Can start Suboxone if needed in the future Watch for withdrawal
[2018-03-19] MEDS ORDERED: SEROQUEL100 M1 PO (14:57)
[2018-03-19] MEDS ORDERED: SUBOXONE 8 MG-1 EACH SL (15:10)
--- NOTE | 2018-03-19 18:11 | Cons- Psychiatry ---
Psychiatric Consult Date of Consult: 03/19/18 Reason for Consult: overdose ?intentional Allergies: Coded Allergies: No Known Allergies (03/18/18) Past History Past Medical History Musculoskeletal: back pain Psychiatric: substance abuse (heroin abuse 3 years ago) Past Surgical History Surgical History: non-contributory Assessment/Plan Impression: Pt seen at 5 pm Pt is a 42 y/o M with remote hx treated Hep C and hx of opiate use d/o who presented s/p overdose on heroin. Pt was active all day according to his girlfriend and then seemed drowsy and "out of it." Later in the day he stated he was going to get popcorn and she found him in position unresponsive with labored breathing. In ED pt did not respond to narcan and he was intubated and admitted to the ICU. Laboratory Tests 03/19/18 0350: Anion Gap 10, Estimated GFR > 60, Glucose 103 H, Calcium 8.4, Phosphorus 3.2, Magnesium 2.0, Total Bilirubin 0.5, AST 22, ALT 27, Albumin 3.3 L, CBC w Diff NO MAN DIFF REQ, RBC 3.94 L, MCV 84.7, MCH 28.0, MCHC 33.0, RDW 13.6, MPV 7.6, Gran % 72.8, Lymphocytes % 16.4 L, Monocytes % 8.7, Eosinophils % 1.8, Basophils % 0.3, Absolute Granulocytes 4.3, Absolute Lymphocytes 1.0 L, Absolute Monocytes 0.5, Absolute Eosinophils 0.1, Absolute Basophils 0 Current Medications Sig/Alexis Start time Last Medication Dose Route Stop Time Status Admin Ampicillin Sodium/ 3,000 MG 0400,1000,1600,2200 03/18 1600 AC 03/19 Sulbactam Sodium IV 1634 Sodium Chloride 100 ML Buprenorphine/ 1 TAB Q8 03/19 1511 AC 03/19 Naloxone SL 1527 Enoxaparin Sodium 40 MG DAILY 03/18 09 AC 03/19 SC 0931 Morphine Sulfate 4 MG .STK-MED ONE 03/19 0319 DC IM 03/19 0320 Morphine Sulfate 2 MG Q6P PRN 03/18 1030 DC 03/19 IV 0320 Pantoprazole Sodium 40 MG DAILY 03/18 09 AC 03/19 IV 0931 Potassium Chloride 40 MEQ ONCE ONE 03/19 09 DC 03/19 PO 03/19 916 0922 Quetiapine Fumarate 100 MG QPM 03/19 2100 AC PO Sodium Chloride 1,000 ML Q13H 03/18 1145 AC 03/19 IV 1635 MSE: On exam pt is extubated, awake and alert in bed. He is calm and cooperative. His speech is clear normal rate and rhythm. He does not remember the event but no other memory deficits are obvious. No motor abnormalities. Mood /affect euthymic. Thoughts are linear. Content: "I did not try to kill myself I love myself too much. I went out and I used heroin because when Im doing well i tell myself I deserve a reward." No delusions, SI, HI or hallucinations. Denial that he put himself in danger. Minimization (I don't use very often.") Insight is limited but I gave him psychoeducation regarding his denial as well as how opiates and opiates and BZD shutdown respiratory center as well as about fentanyl and the combination of illicit opiates with suboxone already in his system including respiratory depression and . He was appropriately worried. "No one ever explained in to me that way." Discussed/encouraged recovery and seeking treatment with pt. A/ This is a 42 y/o M with opiate use d/o who was found unresponsive by his GF s /p overdose on IV heroin. He does not want GF to know he used illicit opiates she thinks he only uses pills. He wants her name taken out of the system. We discussed what he did at length as he felt he did not endanger himself. He is very clear he did not want to commit suicide and per notes GF provided no history that he has been depressed or making suicidal statements. Pt is on maintenance therapy with suboxone. P/ -No psychiatric intervention needed though suggest confirming with GF that she has no concerns about suicidality. Pt knows we can accept information but not give information. Otherise he does not want communication with GF (Meme) -Pt was on morphine to prevent OD spoke with CCU stop morphine restart suboxone at confirmed dose when pt starts to exhibit signs of WD otherwise we will precipitate withdrawal -Please call SW consult to discuss recovery options with pt -Would not use benzodiazepines unless for medical reasons as this is another drug of choice Please call crisis overnight with any emergent questions. Saeed TAMEZ #[phone]
[2018-03-20] VITALS (7 sets, daily range): BP systolic 110–149; BP diastolic 64–83
[2018-03-20 06:12] LABS: ABSOLUTE BASOPHIL COUNT 0 /CUMM (0.0-0.2); ABSOLUTE EOSINOPHIL COUNT 0.2 /CUMM (0.0-0.7); ABSOLUTE GRANULOCYTE CT 3.8 /CUMM (1.4-6.5); ABSOLUTE LYMPH COUNT 1.4 /CUMM (1.2-3.4); ABSOLUTE MONOCYTE COUNT 0.5 /CUMM (0.10-0.60); BASOPHIL % 0.3 % (0.0-2.0); EOSINOPHIL % 4.1 % (0-5); HEMATOCRIT 35.6 % (42-52); MEAN CORPUSCULAR HGB 27.7 PG (27.0-31.0); MEAN CORPUSCULAR VOLUME 83.9 FL (80.0-94.0); MEAN PLATELET VOLUME 7.4 FL (7.4-10.4); PLATELET COUNT 240 /CUMM (130-400); RBC DISTRIBUTION WIDTH 13.4 % (11.5-14.5); RED BLOOD CELL CT 4.25 /CUMM (4.70-6.10)
--- NOTE | 2018-03-20 07:17 | RADIOLOGY REPORT ---
EXAMINATION: XR PORTABLE CHEST CLINICAL INFORMATION: Shortness of breath. COMPARISON: Recent priors. TECHNIQUE: Portable frontal view of the chest was obtained. FINDINGS: There is persistent mild elevation of the left hemidiaphragm with minimal right basilar atelectasis. The lungs are otherwise clear. The pleural spaces are clear. The heart and mediastinal structures are normal. IMPRESSION: Mild elevation right hemidiaphragm with minimal basilar atelectasis. Otherwise unremarkable.
--- NOTE | 2018-03-20 09:03 | PN- Resident CRCU ---
Subjective HPI/CRCU Issues: No acute events overnight. Patient states he is doing well. No issues. Objective Vital Signs & I&O Last 8 Hrs of Vitals and I&O: Laboratory Tests 03/20/18 0530: Anion Gap 10, Estimated GFR > 60, Glucose 95, Calcium 8.6, Phosphorus 3.4, Magnesium 1.8, Total Bilirubin 0.4, AST 21, ALT 23, Albumin 3.3 L, CBC w Diff NO MAN DIFF REQ, RBC 4.25 L, MCV 83.9, MCH 27.7, MCHC 33.0, RDW 13.4, MPV 7.4, Gran % 63.0, Lymphocytes % 24.1, Monocytes % 8.5, Eosinophils % 4.1, Basophils % 0.3, Absolute Granulocytes 3.8, Absolute Lymphocytes 1.4, Absolute Monocytes 0.5 , Absolute Eosinophils 0.2, Absolute Basophils 0 Vital Signs Date Time Temp Pulse Resp B/P B/P Pulse O2 O2 Flow FiO2 Mean Ox Delivery Rate 03/20 0800 99.4 80 18 110/80 95 Nasal 1.0L Cannula 03/20 0600 92 20 146/83 Exam General Appearance: alert, awake Respiratory: b/l basilar crackles Cardiovascular: regular rate/rhythm Gastrointestinal: normal bowel sounds, soft, non-tender Extremities: 2+ radial pulses, no LE edema Weaning Parameters NIF: 20 Minute Volume: 7.26 Resp rate: 14 Vt: 390 Heart Rate: 84 Weaning Schedule Start Time: 0835 Minute Volume: 7.5 Resp Rate: 13 Vt: 446 Heart Rate: 84 End Time: 0930 Minute Volume: 8.0 Resp Rate: 14 Vt: 490 Heart Rate: 88 Current Medications: Current Medications Sig/Alexis Start time Last Medication Dose Route Stop Time Status Admin Ampicillin Sodium/ 3,000 MG 0400,1000,1600,2200 03/18 1600 DC 03/20 Sulbactam Sodium IV 0920 Sodium Chloride 100 ML Buprenorphine/ 1 TAB Q8 03/19 1511 AC 03/20 Naloxone SL 1400 Enoxaparin Sodium 40 MG DAILY 03/18 0900 AC 03/20 SC 0811 Ibuprofen 400 MG ONCE ONE 03/20 1600 DC 03/20 PO 03/20 1601 1550 Ibuprofen 400 MG Q6P PRN 03/20 1600 AC PO Ibuprofen 400 MG ONCE ONE 03/20 0615 DC 03/20 PO 03/20 0616 0609 Magnesium Oxide 400 MG ONE ONE 03/20 0915 DC 03/20 PO 03/20 0916 1012 Omeprazole 40 MG DAILY AC 03/21 0700 AC PO Pantoprazole Sodium 40 MG DAILY 03/18 0900 DC 03/20 IV 0811 Potassium Chloride 40 MEQ ONCE ONE 03/20 0915 DC 03/20 PO 03/20 0916 1012 Quetiapine Fumarate 100 MG QPM 03/19 2100 AC 03/19 PO 2121 Sodium Chloride 1,000 ML Q13H 03/18 1145 DC 03/20 IV 0741 Trimethoprim/ 1 TAB BID 03/20 2100 AC Sulfamethoxazole PO Trimethoprim/ 1 TAB BID 03/20 1128 DC Sulfamethoxazole PO Impression/Plan Impression/Problem List Impression: Assessment: -Acute respiratory failure 2/2 OPIATE OVERDOSE status post intubation requiring maximum support/ today extubated -ST depression on ECG resolved -Aspiration pneumonia -History of IVDU currently on Suboxone, hep C S/P treatment Plan: * Patient extubated yesterday. Now on Room air * Switch from IV Unasyn to by mouth Bactrim BID for 5 more days (for 7 days total). cx growing staph aureus and beta strep. * Switch from IV Protonix to by mouth Protonix * cont psych and SW recommendations. * Morphine discontinued * He is following with [facility] for Suboxone, the dose was confirmed and ordered, he is on 8-2mg film Q8hr. * Replace electrolytes. Keep Mg >2 and K>4 * Awaiting neurology and cardiology evaluation * cont quetiapine for mental health * Stopped IVF as he is eating * Patient passed swallow eval. Regular diet * dvt ppx: sc lovenox * FC Problem List: 1. Aspiration pneumonia 2. Opiate overdose 3. Respiratory failure requiring intubation Pain Ratin Tomorrow's Labs & Rationales: cbc bep mag Plan DVT/Prophylaxis: lovenox
--- NOTE | 2018-03-20 09:58 | PN- CRCU ---
Subjective HPI/Critical Care Issues: Doing better Extubated Back to baseline No other complaints Chest x-ray showed mildly elevated hemidiaphragm mild bibasilar atelectasis significant data potassium low magnesium 1.8 white count down to 6 hemoglobin 11.8 Cultures from a sputum reviewed which showed heavy growth of staph aureus and beta strep. Patient has responded to Unasyn. Probably has methicillin sensitive staph aureus Objective Current Medications: Current Medications Sig/Alexis Start time Last Medication Dose Route Stop Time Status Admin Ampicillin Sodium/ 3,000 MG 0400,1000,1600,2200 03/18 1600 AC 03/20 Sulbactam Sodium IV 0920 Sodium Chloride 100 ML Buprenorphine/ 1 TAB Q8 03/19 1511 AC 03/20 Naloxone SL 0610 Enoxaparin Sodium 40 MG DAILY 03/18 0900 AC 03/20 SC 0811 Ibuprofen 400 MG ONCE ONE 03/20 0615 DC 03/20 PO 03/20 0616 0609 Magnesium Oxide 400 MG ONE ONE 03/20 0915 DC PO 03/20 0916 Morphine Sulfate 2 MG Q6P PRN 03/18 1030 DC 03/19 IV 0320 Pantoprazole Sodium 40 MG DAILY 03/18 0900 AC 03/20 IV 0811 Potassium Chloride 40 MEQ ONCE ONE 03/20 0915 DC PO 03/20 0916 Quetiapine Fumarate 100 MG QPM 03/19 2100 AC 03/19 PO 2121 Sodium Chloride 1,000 ML Q13H 03/18 1145 DC 03/20 IV 0741 Vital Signs & I&O Last 24 Hrs of Vitals and I&O: Vital Signs Date Time Temp Pulse Resp B/P B/P Pulse O2 O2 Flow FiO2 Mean Ox Delivery Rate 03/20 0800 99.4 80 18 110/80 95 Nasal 1.0L Cannula 03/20 0600 92 20 146/83 03/20 0400 98.9 71 18 149/81 03/20 0400 92 Room Air 03/20 0200 66 18 134/76 03/20 0000 98.2 81 18 130/70 03/20 0000 98.2 81 18 130/70 92 Room Air 03/20 0000 92 Room Air 03/19 2200 86 20 121/72 03/19 2000 97.4 86 20 130/80 03/19 2000 96 Nasal 3.0L Cannula 03/19 1800 90 16 159/88 03/19 1600 98.4 89 18 118/60 03/19 1600 98.4 89 18 118/60 98 Nasal 3.0L Cannula 03/19 1600 98 Nasal 3.0L Cannula 03/19 1400 82 16 129/81 03/19 1200 88 18 132/66 03/19 1200 96 Nasal 3.0L Cannula 03/19 1000 86 16 129/81 Intake & Output 03/20 1600 03/20 0800 03/20 0000 Intake Total 765 1151 Output Total 1170 1240 Balance -405 -89 Intake, IV 545 691 Intake, Oral 220 460 Output, Urine 1170 1240 Impression/Plan Impression/Plan Impression/Plan: General Appearance initially intubated and subsequently extubated awake alert HEENT Atraumatic, PERRLA, EOMI, Mucous Membr. moist/pink, intubated, NG tube in place Neck Supple, No JVD Cardiovascular Normal S1, Normal S2 Lungs wide spread rhonchi Abdomen Normal Bowel Sounds, Soft, distended /33/75 on the 60% FiO2. IMPRESSION This a gentleman with polysubstance abuse with multiple drug use, history of being on Flexeril and gabapentin and Viagra with multiple other medication bottles found at his bedside including baclofen etc. as noted in the history and physical now has * Resolved Acute hypoxemic respiratory failure related to drug overdose intentional versus unintentional not known.and with history of intravenous drug use * Significant aspiration pneumonia due to drug overdose and vomiting, now has staph aureus and beta strep in the sputum responding to Unasyn * Transient EKG changes rule out ischemic heart * Toxic metabolic encephalopathy from multiple medications * History of IV drug use heroine use previous hepatitis C high risk for withdrawal RECOMMENDATION Continue antibiotics for total of 7 days Bactrim DS one tablet by mouth twice a day for 5 more days Subcutaneous Lovenox Psychiatry consult noted restart Suboxone Okay to go to the floor
[2018-03-21 08:00] VITALS: BP 150/80
--- NOTE | 2018-03-21 08:12 | PN- Resident CRCU ---
Jeb TAMEZ,[facility] 03/21/18 0811: Subjective HPI/CRCU Issues: Patient was febrile to 101.0 24 Hour Events: Mr Betancur was seen and examined this morning. He is resting comfortably on the chair beside his bed. States that he had no issues overnight. He was able to some rest although states multiple inturruptions kept him from sleeping entirely through the night. This morning he is alert and oriented 3. He has been tolerating PO intake. 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 Denies any fever, chills, nausea, vomiting. Denies any chest pain or chest discomfort. Objective Vital Signs & I&O Last 8 Hrs of Vitals and I&O: T: 98.9 OK 62 RR: 20 BP 150/80 95% on RA Exam General Appearance: well developed/nourished, no apparent distress, alert, awake Neck: normal inspection Respiratory: normal breath sounds, chest non-tender, no respiratory distress Cardiovascular: regular rate/rhythm, edema Gastrointestinal: normal bowel sounds, soft, non-tender Extremities: normal inspection, normal capillary refill Cranial Nerves: PERRL Skin: intact, normal color, warm/dry Skin Temp/Moisture Exam: Warm/Dry Sepsis Skin Exam (color): Normal for Ethnicity Weaning Parameters NIF: 20 Minute Volume: 7.26 Resp rate: 14 Vt: 390 Heart Rate: 84 Weaning Schedule Start Time: 0835 Minute Volume: 7.5 Resp Rate: 13 Vt: 446 Heart Rate: 84 End Time: 0930 Minute Volume: 8.0 Resp Rate: 14 Vt: 490 Heart Rate: 88 Current Medications: Current Medications Sig/Alexis Start time Last Medication Dose Route Stop Time Status Admin Acetaminophen 650 MG ONCE ONE 03/21 0745 DC 03/21 PO 03/21 0746 0747 Ampicillin Sodium/ 3,000 MG 0400,1000,1600,2200 03/18 1600 DC 03/20 Sulbactam Sodium IV 0920 Sodium Chloride 100 ML Buprenorphine/ 1 TAB Q8 03/19 1511 AC 03/21 Naloxone SL 0617 Enoxaparin Sodium 40 MG DAILY 03/18 0900 AC 03/21 SC 0852 Ibuprofen 400 MG ONCE ONE 03/20 1600 DC 03/20 PO 03/20 1601 1550 Ibuprofen 400 MG Q6P PRN 03/20 1600 AC PO Magnesium Oxide 400 MG ONE ONE 03/20 0915 DC 03/20 PO 03/20 0916 1012 Magnesium Sulfate 1 GM Q2H 03/21 0900 AC Dextrose/Water 100 ML IV 03/21 1259 Omeprazole 40 MG DAILY AC 03/21 0700 AC 03/21 PO 0617 Pantoprazole Sodium 40 MG DAILY 03/18 0900 DC 03/20 IV 0811 Potassium Chloride 40 MEQ ONCE ONE 03/20 0915 DC 03/20 PO 03/20 0916 1012 Quetiapine Fumarate 100 MG QPM 03/19 2100 AC 03/20 PO 2105 Sodium Chloride 1,000 ML Q13H 03/18 1145 DC 03/20 IV 0741 Trimethoprim/ 1 TAB BID 03/20 2100 AC 03/21 Sulfamethoxazole PO 0852 Trimethoprim/ 1 TAB BID 03/20 1128 DC Sulfamethoxazole PO Impression/Plan Impression/Problem List Impression: Mr. Betancur is a 42-year-old gentleman who was recently admitted to the ICU for management of acute hypoxic respiratory failure requiring mechanical intubation and ventilation due to overdose on multiple substances. Assessment: -Acute respiratory failure 2/2 OPIATE OVERDOSE status post intubation requiring maximum support/ today extubated -ST depression on ECG resolved -Aspiration pneumonia -History of IVDU currently on Suboxone, hep C S/P treatment Plan: * Patient extubated 48 hours ago. Now on Room air * Switch from Bactrim to Cefitin for 5 more days (for 7 days total). cx growing staph aureus and beta strep. Blood cultures have been repeated due to being febrile overnight. WBC WNL. If continues to spike, consider for drug fever. * Continue mouth Protonix * Cont psych and SW recommendations. * Morphine discontinued * He is following with [facility] for Suboxone, the dose was confirmed and ordered, he is on 8-2mg film Q8hr. * Replace electrolytes. Keep Mg >2 and K>4 * Awaiting neurology and cardiology evaluation * cont quetiapine for mental health * Stopped IVF as he is eating * Patient would benefit from Naloxone/Naltreone kit at the time of discharge. * Patient passed swallow eval. Regular diet * dvt ppx: sc lovenox * FC Problem List: 1. Aspiration pneumonia 2. Respiratory failure requiring intubation 3. Opiate overdose Pain Ratin Tomorrow's Labs & Rationales: BEP and Magnesium: Monitor Electrolytes in the setting of hypomagnesemia Plan DVT/Prophylaxis: sofia Garza MD,[facility] 03/21/18 1015: Attending MD Review Statement Attending Sign Off Attending Cosign Statement: I have: examined this patient, reviewed al EMR data, personally reviewd images, discussd w/resident/PA/MEDIA PRODUCTION SUPPORT MANAGER, discussed mgmt plan w/jake, discussed mgmt plan w/CM, discussed mgmt plan w/pt, agreed w/resident/PA/MEDIA PRODUCTION SUPPORT MANAGER, amended to note. Other Findings: Doing well Ok to the floor IMPRESSION This a gentleman with polysubstance abuse with multiple drug use, history of being on Flexeril and gabapentin and Viagra with multiple other medication bottles found at his bedside including baclofen etc. as noted in the history and physical now has * Resolved Acute hypoxemic respiratory failure related to drug overdose intentional versus unintentional not known.and with history of intravenous drug use * Significant aspiration pneumonia due to drug overdose and vomiting, now has staph aureus and beta strep in the sputum * Transient EKG changes rule out ischemic heart * Toxic metabolic encephalopathy from multiple medications * History of IV drug use heroine use previous hepatitis C high risk for withdrawal RECOMMENDATION Continue antibiotics for total of 7 days Change to ceftin 500 bid for 5 more days and dc bactrim Subcutaneous Lovenox Psychiatry consult noted restart Suboxone Okay to go to the floor Ok to dc in am
[2018-03-21 16:00] VITALS: BP 140/84
[2018-03-21 19:20] VITALS: BP 140/90
[2018-03-21 20:00] VITALS: BP 140/90
[2018-03-22] VITALS: BP 138/90
[2018-03-22 02:00] VITALS: BP 138/90
[2018-03-22 04:00] VITALS: BP 138/90
[2018-03-22 06:01] VITALS: BP 106/60
--- NOTE | 2018-03-22 07:26 | PN- Housestaff ---
Jeb TAMEZ,[facility] 03/22/18 0725: Subjective Follow-up For: Aspiration PNA Subjective: Mr Betancur was seen and examined this morning. He is resting comfortably in bed. Denies any issues overnight although states was unable to get very much rest due to multiple interruptions. He feels well this morning and is eager to be discharged. He denies any fever, chills, nausea, vomiting. Denies any shortness of breath or sputum production with cough. Review of Systems Constitutional: Reports: see HPI. Objective Last 24 Hrs of Vital Signs/I&O Vital Signs Date Time Temp Pulse Resp B/P B/P Pulse O2 O2 Flow FiO2 Mean Ox Delivery Rate 03/22 1125 97.9 72 20 130/70 97 Room Air 03/22 0601 97.9 61 20 106/60 92 Room Air 03/22 0400 98.2 53 20 138/90 03/22 0200 98.2 53 20 138/90 03/22 0000 Room Air 03/22 0000 98.2 53 20 138/90 03/22 0000 98.2 53 20 138/90 92 Room Air 03/21 2000 98.1 77 18 140/90 03/21 1920 98.1 77 18 140/90 98 Room Air 03/21 1600 98.6 75 20 140/84 95 Room Air Intake & Output 03/22 1600 03/22 0800 03/22 0000 Intake Total 460 500 Output Total 250 Balance 460 250 Intake, Oral 460 500 Output, Urine 250 Physical Exam General Appearance: Alert, Oriented X3, Cooperative Lymphatic: Cervical nl Cardiovascular: Regular Rate, Normal S1, Normal S2 Lungs: Clear to Auscultation Abdomen: Normal Bowel Sounds, Soft, No Tenderness Neurological: Normal Gait, Normal Speech Extremities: No Clubbing, No Cyanosis, No Edema Vascular: Normal Pulses Current Medications: Current Medications Sig/Alexis Start time Last Medication Dose Route Stop Time Status Admin Buprenorphine/ 1 TAB Q8 03/19 1511 DCD 03/22 Naloxone SL 0538 Cefuroxime Sodium 500 MG Q12 03/21 1114 DCD 03/22 PO 0919 Enoxaparin Sodium 40 MG DAILY 03/18 0900 DCD 03/22 SC 0919 Ibuprofen 400 MG Q6P PRN 03/20 1600 DCD PO Omeprazole 40 MG DAILY AC 03/21 0700 DCD 03/22 PO 0538 Quetiapine Fumarate 100 MG QPM 03/19 2100 DCD 03/21 PO 2136 Last 24 Hrs of Lab/Sj Results Last 24 Hrs of Labs/Mics: Laboratory Tests 03/22/18 0626: Anion Gap 12, Estimated GFR > 60, BUN/Creatinine Ratio 14.0, Magnesium 1.9 Assessment/Plan Assessment: Mr. Betancur is a 42-year-old gentleman who was recently admitted to the ICU for management of acute hypoxic respiratory failure requiring mechanical intubation and ventilation due to overdose on multiple substances. Assessment: -Acute respiratory failure 2/2 OPIATE OVERDOSE status post intubation requiring maximum support/ today extubated -ST depression on ECG resolved -Aspiration pneumonia -History of IVDU currently on Suboxone, hep C S/P treatment Plan: * Patient extubated > 48 hours ago. Now on Room air * Switch from Bactrim to Cefitin for 5 more days (for 7 days total). cx growing staph aureus and beta strep. * Stable for Discharge. * Continue mouth Protonix * Cont psych and SW recommendations. * Morphine discontinued * He is following with [facility] for Suboxone, the dose was confirmed and ordered, he is on 8-2mg film Q8hr. * Replace electrolytes. Keep Mg >2 and K>4 * cont quetiapine for mental health * Stopped IVF as he is eating * Patient would benefit from Naloxone/Naltreone kit at the time of discharge. * Patient passed swallow eval. Regular diet * dvt ppx: sc lovenox * FC Problem List: 1. Aspiration pneumonia 2. Respiratory failure requiring intubation 3. Opiate overdose Pain Ratin Pain Location: No pain Pain Goal: Remain pain free Pain Plan: NA Tomorrow's Labs & Rationales: Kareem Aguilera 03/22/18 1137: Attending MD Review Statement Attending Statement Attending MD Statement: examined this patient, discuss w/resident/PA/NEONATAL DOCTOR, agreed w/resident/PA/NEONATAL DOCTOR, reviewed EMR data (avail), discussed with nursing, discussed with case mgmt Attending Assessment/Plan: Pt being dced home in stable condition. His flexeril was stopped and encouraged pt not to use muslce relaxants due to its sedative effects in combination with seroquel. Pt has no current indication for muscle relaxant so it was stopped at dc. d/w pt the care plan.
--- NOTE | 2018-03-22 08:53 | Patient Discharge Instructions ---
Discharge Instructions General Discharge Information You were seen/treated for: Overdose Special Instructions: Please follow-up with your primary care physician within 7 days. Please have your primary care physician do a medication reconciliation of all your medications. Acute Coronary Syndrome Inclusion Criteria At DC or during hospital stay patient has or had the following: ACS DIAGNOSIS No Discharge Core Measures Meds if any: Prescribed or Continued at Discharge Meds if any: NOT Prescribed or Continued at Discharge Congestive Heart Failure Inclusion Criteria At DC or during hospital stay patient has or had the following: CHF DIAGNOSIS No Discharge Core Measures Meds if any: Prescribed or Continued at Discharge Meds if any: NOT Prescribed or Continued at Discharge Cerebrovascular accident Inclusion Criteria At DC or during hospital stay patient has or had the following: CVA/TIA Diagnosis No Discharge Core Measures Meds if any: Prescribed or Continued at Discharge Meds if any: NOT Prescribed or Continued at Discharge Venous thromboembolism Inclusion Criteria VTE Diagnosis No VTE Type NONE VTE Confirmed by (Test) NONE Discharge Core Measures - Per Current guidelines, there needs to be overlap - treatment for the first 5 days of Warfarin therapy. - If discharged on Warfarin prior to 5 days of - overlap therapy, the patient will need to be - assessed for post discharge needs including - *Post discharge parental anticoagulation - *Warfarin and/or parental anticoagulation education - *Follow up date to check INR post discharge Meds if any: Prescribed or Continued at Discharge Note: Overlap Therapy is Warfarin and Anticoagulant Meds if any: NOT Prescribed or Continued at Discharge
[2018-03-22] MEDS ORDERED: CEFUROXIME500 MG PO ×2 (08:56→10:21)
[2018-03-22] MEDS ORDERED: QUETIAPINE FUMA50 M1 PO (10:20)
[2018-03-22 11:25] VITALS: BP 130/70
== END 2018-03-22 12:36 | DRG 812 ==
LOC: ERH 23:50 → ERHI 03-18 02:32 → CRI 03-18 02:32 → ENRESERV 03-18 02:45 → CRI 03-18 04:36 → 2NA 03-21 19:20 → ENPENDDIS 03-22 11:10 → 2NA 03-22 12:36
PROVIDERS: Emergency Medicine; Student in an Organized Health Care Education/Training Program
PROC: 5A1935Z Respiratory Ventilation, Less than 24 Consecutive Hours (ICD-10-PCS; principal; 2018-03-18)
PROC: 0BH17EZ Insertion of Endotracheal Airway into Trachea, Via Natural or Artificial Opening (ICD-10-PCS; 2018-03-18)
PROC: HZ91ZZZ Pharmacotherapy for Substance Abuse Treatment, Methadone Maintenance (ICD-10-PCS; 2018-03-18)
DX: T40.2X4A Poisoning by other opioids, undetermined, initial encounter (principal); J96.01 Acute respiratory failure with hypoxia; J69.0 Pneumonitis due to inhalation of food and vomit; G92 Toxic encephalopathy; Y92.009 Unspecified place in unspecified non-institutional (private) residence as the place of occurrence of the external cause; B18.2 Chronic viral hepatitis C; F11.11 Opioid abuse, in remission; B95.61 Methicillin susceptible Staphylococcus aureus infection as the cause of diseases classified elsewhere
CPT/HCPCS: 2NAP; 87184; CCU; 36415; 36592; 71045; 74176; 80305; 80307; 82436; 87040; 87070; 87086; 87147; 93005; 93010; 94799; 96374; 96375; 96376; 99291; G0480; J1650; J2310